=== PATIENT | female | born 1990 | race African-American/Black ===

== ENCOUNTER 2017-05-21 08:08 | Inpatient (IN) | payer MEDICAID ==
[2017-05-21] MEDS ORDERED: RINGERS SOLUTION,LACTATED 300 ML IV ONE (08:25)
[2017-05-21] MEDS ORDERED: RINGERS SOLUTION,LACTATED 1,000 ML IV PRN (08:25)
[2017-05-21] MEDS ORDERED: LIDOCAINE 1% INJ-PF (10 MG/ML) 30 ML SDV ONE (08:31)
[2017-05-21] MEDS ORDERED: OXYTOCIN/NORMAL SALINE 20 UNIT/1,000 ML RTUINJ ONE (08:31)
[2017-05-21] MEDS ORDERED: MISOPROSTOL 0.2 MG TABLET ONE (08:31)
[2017-05-21] MEDS ORDERED: BENZOCAINE/MENTHOL AEROSOL SPRAY 56 ML TOP PRN (08:42)
[2017-05-21] MEDS ORDERED: OXYTOCIN/NORMAL SALINE 20 UNIT/1,000 ML RTUINJ IV PRN (08:42)
[2017-05-21] MEDS ORDERED: MEASLES,MUMPS&RUBELLA VACC/PF 0.5 ML VIAL SUBCUT PRN (08:42)
[2017-05-21] MEDS ORDERED: DIPHENHYDRAMINE HCL 25 MG CAPSULE PO PRN (08:42)
[2017-05-21] MEDS ORDERED: DIPH/PERTUSS(ACELL)/TETANUS VAC/PF 0.5 ML SYR (>=10YO) IM PRN (08:42)
[2017-05-21] MEDS ORDERED: PSEUDOEPHEDRINE HCL 30 MG TABLET PO PRN (08:42)
[2017-05-21] MEDS ORDERED: NA PHOS,M-B/NA PHOS,DI-BA (ADULT) 133 ML ENEMA PR PRN (08:42)
[2017-05-21] MEDS ORDERED: PROMETHAZINE HCL INJ 25 MG/1 ML VIAL IV PRN (08:42)
[2017-05-21] MEDS ORDERED: DIBUCAINE 1% OINTMENT 28 GM TP PRN (08:42)
[2017-05-21] MEDS ORDERED: MAGNESIUM HYDROXIDE SUSP 30 ML UDCUP PO PRN (08:42)
[2017-05-21] MEDS ORDERED: PROMETHAZINE HCL 25 MG TABLET PO PRN (08:42)
[2017-05-21] MEDS ORDERED: ACETAMINOPHEN WITH CODEINE #3 TABLET PO PRN (08:42)
[2017-05-21] MEDS ORDERED: ZOLPIDEM TARTRATE 5 MG TABLET PO PRN (08:42)
[2017-05-21] MEDS ORDERED: PROMETHAZINE HCL 25 MG SUPP.RECT PR PRN (08:42)
[2017-05-21] MEDS ORDERED: ACETAMINOPHEN 325 MG TABLET PO PRN (08:42)
[2017-05-21] MEDS ORDERED: GLYCERIN/WITCH HAZEL LEAF 1 EACH MED..PAD TP PRN (08:42)
[2017-05-21 09:01] LABS: ABSOLUTE MONOCYTES (AUTO) 0.6 10^3/uL (0.1-1.4); ABSOLUTE NEUT (AUTO) 3.3 10^3/uL (1.7-8.2); BASOPHILS % (AUTO) 0.6 % (0-2); EOSINOPHILS % (AUTO) 0.5 % (0-6); HEMATOCRIT 35.7 % (36.0-47.0); LYMPHOCYTES % (AUTO) 33.6 % (13-45); MEAN CORPUSCULAR HEMOGLOBIN 27.9 pg (27.0-33.4); MEAN CORPUSCULAR HGB CONC 33.6 g/dL (32.0-36.0); MEAN CORPUSCULAR VOLUME 83 fl (80-97); MONOCYTES % (AUTO) 9.3 % (3-13); PLATELET COUNT 245 10^3/uL (150-450); RED CELL DISTRIBUTION WIDTH 14.7 % (11.5-14.0); TOTAL CELLS COUNTED % (AUTO) 100 %; WHITE BLOOD COUNT 5.9 10^3/uL (4.0-10.5)
--- NOTE | 2017-05-21 12:56 | Delivery Summary ---
Del Sum A-C Datetime Report Generated by CPN: 05/21/2017 12:56 DELIVERY PERSONNEL DELIVERY PERSONNEL: [id number] Delivery Doctor:: Yashira Lambert CNM Nurse Operations Administrator Certified:: Yashira Lambert CNM Labor and Delivery Nurse:: IMTIAZ Reich Labor and Delivery Nurse:: IMTAIZ Chan Animal Behaviorist/GRANULATOR: Linda Castro CST Animal Behaviorist/GRANULATOR: Ruth Mckinney CST Additional Personnel: : Belia Miner RN MATERNAL INFORMATION Delivery Anesthesia: None Medications After Delivery: Pitocin Bolus-Please Comment; Pitocin Drip 20 Units/1000ml NSS Estimated Blood Loss (ml): 250 Maternal Complications: Precipitous Labor (<3hrs) Provider Comments: AC, TIGHT NUCHAL CORD DELIVERED THROUGH. CORD DOUBLE CLAMPED AND CUT. SPONTANEOUS PLACENTA INTACT WITH 3VC. FIRST DEGREE PERINEAL LACERATION APPROXIMATES WITH NORMAL ANATOMY, HEMOSTATIC-NO REPAIR NEEDED. MOTHER AND INFANT STABLE IN L_D #8. LABOR SUMMARY EDC: 05/20/2017 00:00 No. Babies in Womb: 1 Attempted: No Labor Anesthesia: None LABOR INFORMATION Reason for Induction: Not Applicable Onset of Labor: 05/21/2017 02:00 Complete Dilatation: 05/21/2017 08:36 Oxytocin: N/A Group B Beta Strep: negative Antibiotics # of Doses: 0 Steroids Given: None Reason Steroids Not Administered: Not Applicable MEMBRANES Membranes Rupture Method: Artificial Rupture of Membranes: 05/21/2017 08:42 Length of Rupture (hr): 0.10 Amniotic Fluid Color: Clear Amniotic Fluid Amount: Moderate Amniotic Fluid Odor: Normal STAGES OF LABOR Stage 1 hr: 6 Stage 1 min: 36 Stage 2 hr: 0 Stage 2 min: 12 Stage 3 hr: 0 Stage 3 min: 5 Total Time in Labor hr: 6 Total Time in Labor min: 53 VAGINAL DELIVERY Episiotomy: None Laceration #1: Perineal Laceration Extension #1: First Degree Laceration Repair: No Sponge Count Correct: N/A CSECTION DELIVERY Primary Indication: N/A Secondary Indication: N/A CSection Incidence: N/A Labor: N/A Elective: N/A CSection Incision: N/A BABY A INFORMATION Infant Delivery Date/Time: 05/21/2017 08:48 Method of Delivery: Vaginal Born in Route : No : N/A Forceps: N/A Vacuum Extraction: N/A Shoulder Dystocia : No PRESENTATION/POSITION BABY A Presentation: Cephalic Cephalic Presentation: Vertex Vertex Position: Left Occipital Anterior Breech Presentation: N/A PLACENTA INFORMATION BABY A Placenta Delivery Time : 05/21/2017 08:53 Placenta Method of Delivery: Spontaneous Placenta Status: Delivered SCORES BABY A Heart Rate 1 min: >100 bpm Resp Effort 1 min: Good Cry Reflex Irritability 1 min: Cough or Sneeze or Pulls Away Muscle Tone 1 min: Active Motion Color 1 min: Blue/Pale Resuscitation Effort 1 min: Tactile Stimulation SCORE 1 MIN: 8 Heart Rate 5 min: >100 bpm Resp Effort 5 min: Good Cry Reflex Irritability 5 min: Cough or Sneeze or Pulls Away Muscle Tone 5 min: Active Motion Color 5 min: Body New Roads, Extremities Blue Resuscitation Effort 5 min: N/A SCORE 5 MIN: 9 Resuscitation Effort 10 min: N/A INFORMATION BABY A Gestational Age at Delivery: 40.1 Gestational Status: Full Term- 39- 40.6 Weeks Outcome : Liveborn Condition : Stable Infant Sex: Female IDENTIFICATION BABY A Verification Date/Time: 05/21/2017 09:09 ID Band Number: [id number] Mother's Name Verified: Yes Infant RN Verifying : Brigida Camp RNC Additional Verifying Personnel: Belia Miner RN CORD INFORMATION BABY A No. Cord Vessels: 3 Nuchal Cord : Around Neck x1, Loose Cord Blood Taken: Yes-For Eval (Mom's Blood Type - or O+) Infant Suction: None ASSESSMENT BABY A Complications: None Physical Findings at Delivery: Within Normal Limits Infant Respirations: Appears Normal Skin to Skin: Yes Criminal Analyst/ALS Called : No Care By: Marcos Singh RN Transferred To: Remains with Mother BABY B INFORMATION : N/A SIGNATURES Assignment: Will Porras MD Signature: with User ID: [email or web address] : with User ID: [email or web address] : I was personally available for consultation and serving as supervising physician for the MLP.
[2017-05-21 13:14] LABS: APPEARANCE,URINE CLOUDY; BILIRUBIN,URINE NEGATIVE (NEGATIVE); COLOR,URINE YELLOW; GLUCOSE, URINE NEGATIVE (NEGATIVE); KETONES,URINE NEGATIVE (NEGATIVE); LEUKOCYTE ESTERASE,URINE LARGE (NEGATIVE); NITRITE,URINE NEGATIVE (NEGATIVE); PROTEIN,URINE 30 mg/dL (NEGATIVE); UROBILINOGEN,URINE NEGATIVE mg/dL (<2.0)
[2017-05-21 13:36] LABS: URINE AMPHETAMINES SCREEN NEGATIVE; URINE BARBITURATES SCREEN NEGATIVE; URINE BENZODIAZEPINES SCREEN NEGATIVE; URINE COCAINE SCREEN NEGATIVE; URINE METHADONE SCREEN NEGATIVE; URINE PHENCYCLIDINE SCREEN NEGATIVE
[2017-05-21 13:38] LABS: URINE MARIJUANA (THC) SCREEN UNCONFIRMED POSITIVE
--- NOTE | 2017-05-21 15:50 | Admission Physical ---
Datetime Report Generated by CPN: 05/21/2017 15:49 CURRENT ADMISSION Chief Complaint: Uterine Contractions Indication for Induction: Not Applicable Indication for Induction: Term, Intrauterine ; Active Labor Admit Plan: Admit to Unit; Initiate Labor Protocol ALLERGIES Medication Allergies: No Medication Allergies: No Known Allergies (03/18/2014) Latex: Latex Allergies OBSTETRICAL HISTORY EDC: 05/20/2017 00:00 : 4 Para: 1 Term: 1 : 0 SAB: 2 Livin Gestational Diabetes: No Rh Sensitization: No Incompetent Cervix: No JOSE: No Infertility: No ART Treatment: No Uterine Anomaly: No IUGR: No Hx Previous C/S: No Macrosomia: No Hx Loss/Stillborn: No PIH: No Hx : No Placenta Previa/Abruption: No Depression/PP Depression: No PTL/PROM: No Post Hemorrhage: No Current Procedures: Ultrasound; NST Obstetrical History Comments: G1:SAB G2:SAB G3: boy, , 2012, no problems G4: current, no problems SEE RECORDS Alcohol: No Marijuana : No Cocaine: No Other Illicit Drugs: No Cigarettes: Light Tobacco Smoker. [id number] MEDICAL HISTORY Diabetes: No Blood Transfusion: No Pulmonary Disease (Asthma, TB): No Breast Disease: No Hypertension: No Rig Mechanic Surgery: No Heart Disease: No Hosp/Surgery: Yes Autoimmune Disorder: No Anesthetic Complications: No Kidney Disease: No Abnormal Pap Smear: No Neuro/Epilepsy: No Psychiatric Disorders: No Other Medical Diseases: No Hepatitis/Liver Disease: No Significant Family History: No Varicosities/Phlebitis: No Trauma/Violence : No Thyroid Dysfunction: No Medical History Comments: D_C 2011 INFECTIOUS HISTORY Gonorrhea: No Genital Herpes: No Chlamydia: No Tuberculosis: No Syphilis: No Hepatitis: No HIV/AIDS Exposure: No Rash or Viral Illness: No HPV: No PHYSICAL EXAM General: Normal HEENT: Normal Neurologic: Normal Thyroid: Deferred Heart: Normal Lungs: Normal Breast: Deferred Back: Normal Abdomen: Normal Genitourinary Exam: Normal Extremities: Normal DTRs: Normal Pelvic Type: Adequate Vital Signs: Reviewed VAGINAL EXAM Dilatation: 9 Effacement: 100 Station: 0 Contraction Comments: q 2-3 FETUS A EGA: 40.1 Monitoring: External US FHR- Baseline: 125 Variability: Moderate 6-25bpm Accelerations: 15X15 Decelerations: None FHR Category: Category I Presentation: Vertex Admit Comment: 27yo at 40+1ega presents with regular uterine ctx presents due to ctx since 0200. c/b obesity - passed early GTT (failed 28wks 1hr, passed 3 hr GTT). She desires BTL. RH negative - recieved rhogam. GBS negative. Pelvis adequate for SHARON. Anticipate precipitous vaginal delivery. PLANS FOR LABOR AND DELIVERY Labor and Delivery: None Pain Management: None Feeding Preference: Breast Benefit of Breast Feed Discussed: Yes Circumcision: Yes INFORMED CONSENT Informed Consent Obtained: Vaginal Delivery; Risks, Benefits and Alternatives Discussed Signature: with User ID: [email or web address]
[2017-05-21] MEDS: FERROUS SULFATE 325 MG TABLET PO SCH (18:10)
[2017-05-21] MEDS: DOCUSATE SODIUM 100 MG CAPSULE PO SCH (18:11)
[2017-05-21] MEDS: PRENATAL VITAMIN W DHA CAPSULE PO SCH (18:13)
[2017-05-21] MEDS: IBUPROFEN 800 MG TABLET PO SCH ×2 (18:13→21:34)
[2017-05-21] MEDS: FAMOTIDINE 20 MG TABLET PO SCH ×2 (18:13→21:34)
[2017-05-21] MEDS: SENNOSIDES/DOCUSATE 8.6-50 MG 1 EACH TABLET PO SCH (18:13)
[2017-05-22] MEDS: ACETAMINOPHEN WITH CODEINE #3 TABLET PO PRN ×3 (06:36→22:38)
[2017-05-22] MEDS: IBUPROFEN 800 MG TABLET PO SCH ×3 (06:38→22:39)
[2017-05-22 08:07] LABS: HEMATOCRIT 30.2 % (36.0-47.0); HEMOGLOBIN 10.1 g/dL (12.0-15.5); MEAN CORPUSCULAR HEMOGLOBIN 28.1 pg (27.0-33.4); MEAN CORPUSCULAR HGB CONC 33.5 g/dL (32.0-36.0); MEAN CORPUSCULAR VOLUME 84 fl (80-97); PLATELET COUNT 225 10^3/uL (150-450); RED CELL DISTRIBUTION WIDTH 14.7 % (11.5-14.0); WHITE BLOOD COUNT 8.9 10^3/uL (4.0-10.5)
[2017-05-22] MEDS: DOCUSATE SODIUM 100 MG CAPSULE PO SCH ×2 (09:17→17:34)
[2017-05-22] MEDS: FAMOTIDINE 20 MG TABLET PO SCH ×2 (09:17→22:39)
[2017-05-22] MEDS: PRENATAL VITAMIN W DHA CAPSULE PO SCH (09:17)
[2017-05-22] MEDS: FERROUS SULFATE 325 MG TABLET PO SCH ×2 (09:18→17:34)
[2017-05-22] MEDS: SENNOSIDES/DOCUSATE 8.6-50 MG 1 EACH TABLET PO SCH (09:18)
--- NOTE | 2017-05-22 10:40 | PDOC PROGRESS REPORT ---
Subjective-OB Progress Note for:: 05/22/17 Subjective: Doing well, no c/o, breast feeding, voiding, family at BS Physical Exam (OB) Vital Signs: Temp Pulse Resp BP Pulse Ox 98.4 F 89 20 117/63 100 05/21/17 19:44 05/21/17 19:44 05/21/17 19:44 05/21/17 19:44 05/21/17 19:44 Intake & Output 05/21/17 05/22/17 05/23/17 06:59 06:59 06:59 Weight 99.8 kg - Lochia Lochia Amount: Scant < 10 ml Lochia Color: Rubra/Red - Abdomen Description: Soft, Flat Hernia Present: No Fundal Description: Firm, Midline Fundal Height: u/u - u/2 Objective-Diagnostic Laboratory: 05/22/17 07:58 05/21/17 05/22/17 05/22/17 08:16 07:58 07:58 WBC 8.9 RBC 3.60 L Hgb 10.1 L Hct 30.2 L MCV 84 MCH 28.1 MCHC 33.5 RDW 14.7 H Plt Count 225 Urine Color YELLOW Urine Appearance CLOUDY Urine pH 5.0 Ur Specific [place] 1.020 Urine Protein 30 H Urine Glucose (UA) NEGATIVE Urine Ketones NEGATIVE Urine Blood LARGE H Urine Nitrite NEGATIVE Ur Leukocyte Esterase LARGE H Blood Type O NEGATIVE Assessment and Plan(PN) - Assessment and Plan (1) Rh negative, delivered, current hospitalization Is this a current diagnosis for this admission?: Yes (2) Precipitous delivery, delivered (current hospitalization) Is this a current diagnosis for this admission?: Yes - Time Spent with Patient Time with patient: Less than 15 minutes Medications reviewed and adjusted accordingly: Yes - Disposition Anticipated Discharge: Home Within: within 24 hours
[2017-05-22 12:38] LABS: FETAL RBC COUNT 10
[2017-05-22 12:50] LABS: KB INTERPRETATION POSITIVE (NEGATIVE)
[2017-05-23] MEDS: IBUPROFEN 800 MG TABLET PO SCH (08:02)
[2017-05-23] MEDS: SENNOSIDES/DOCUSATE 8.6-50 MG 1 EACH TABLET PO SCH (09:12)
[2017-05-23] MEDS: PRENATAL VITAMIN W DHA CAPSULE PO SCH (09:12)
[2017-05-23] MEDS: DOCUSATE SODIUM 100 MG CAPSULE PO SCH (09:12)
[2017-05-23] MEDS: FAMOTIDINE 20 MG TABLET PO SCH (09:13)
[2017-05-23] MEDS: FERROUS SULFATE 325 MG TABLET PO SCH (09:13)
--- NOTE | 2017-05-23 10:22 | PDOC PROGRESS REPORT ---
Subjective-OB Progress Note for:: 05/23/17 Subjective: Ready for discharge. Physical Exam (OB) Vital Signs: Temp Pulse Resp BP Pulse Ox 98.1 F 110 H 20 120/69 99 05/23/17 08:01 05/23/17 08:01 05/23/17 08:01 05/23/17 08:01 05/23/17 08:01 Intake & Output 05/22/17 05/23/17 05/24/17 06:59 06:59 06:59 Intake Total 540 300 Output Total 200 Balance 340 300 Weight 99.8 kg - Lochia Lochia Amount: Scant < 10 ml Lochia Color: Rubra/Red - Abdomen Description: Soft Hernia Present: No Bowel Sounds: Normoactive Flatus Presence: Present Stool: No Fundal Description: Firm, Midline Fundal Height: u/u - u/2 Objective-Diagnostic Laboratory: 05/22/17 07:58 05/22/17 07:58 Blood Type O NEGATIVE Assessment and Plan(PN) - Time Spent with Patient Medications reviewed and adjusted accordingly: Yes - Disposition Anticipated Discharge: Home
--- NOTE | 2017-05-23 10:26 | PDOC DISCHARGE SUMMARY ---
Final Diagnosis Discharge Date: 05/23/17 - Final Diagnosis (1) Obesity Is this a current diagnosis for this admission?: Yes (2) Precipitous delivery, delivered (current hospitalization) Is this a current diagnosis for this admission?: Yes (3) Rh negative, delivered, current hospitalization Is this a current diagnosis for this admission?: Yes Discharge Data - Discharge Medication Home Medications: Vit No.130/Iron/Folic [ Tablet] 1 each PO DAILY 05/21/17 Gestational Age: 40.1 wks Reason(s) for Admission: Onset of Labor Procedures: Ultrasound Intrapartum Procedure(s): Spontaneous Vaginal Delivery Complication(s): Laceration-Perineal Laceration-Degree: 1st - Data Baby 1 Female at 1 minute: 8 at 5 minutes: 9 Weight: 3.544 kg Home with Mother: Yes Complications: No - Diagnosis Test Laboratory: Temp Pulse Resp BP Pulse Ox 98.1 F 110 H 20 120/69 99 05/23/17 08:01 05/23/17 08:01 05/23/17 08:01 05/23/17 08:01 05/23/17 08:01 05/21/17 05/21/17 05/22/17 08:16 08:26 07:58 RBC 4.30 3.60 L Hgb 12.0 10.1 L Hct 35.7 L 30.2 L Urine Opiates Screen NEGATIVE - Discharge information/Instructions Discharge Activity: Activity As Tolerated, Balance Activity w/Rest, Pelvic Rest , Slowly Increase Activity, No tub bath Discharge Diet: Regular Disposition: HOME, SELF-CARE Follow [facility] with: [facility] in: 4, Weeks
[2017-05-23 11:19] VITALS: BP 104/69
== END 2017-05-23 11:30 | disposition home or self-care (01) | DRG 775 ==
LOC: LC 08:08 → LR 08:29 → 2S 15:45
PROVIDERS: ADMIT Obstetrics & Gynecology Gynecology; ATTEND Obstetrics & Gynecology Gynecology
PROC: 10E0XZZ Delivery of Products of Conception, External Approach (ICD-10-PCS; principal; 2017-05-21)
PROC: 4A1HXCZ Monitoring of Products of Conception, Cardiac Rate, External Approach (ICD-10-PCS; 2017-05-21)
PROC: 10907ZC Drainage of Amniotic Fluid, Therapeutic from Products of Conception, Via Natural or Artificial Opening (ICD-10-PCS; 2017-05-22)
PROC: 3E0234Z Introduction of Serum, Toxoid and Vaccine into Muscle, Percutaneous Approach (ICD-10-PCS; 2017-05-23)
DX: O99.214 Obesity complicating childbirth (principal); O69.81X0 Labor and delivery complicated by cord around neck, without compression, not applicable or unspecified; E66.9 Obesity, unspecified; O26.893 Other specified pregnancy related conditions, third trimester; O99.334 Smoking (tobacco) complicating childbirth; F17.200 Nicotine dependence, unspecified, uncomplicated; O62.3 Precipitate labor; O70.0 First degree perineal laceration during delivery; Z67.41 Type O blood, Rh negative; Z3A.40 40 weeks gestation of pregnancy; Z68.34 Body mass index [BMI] 34.0-34.9, adult; Z37.0 Single live birth
CPT/HCPCS: 36415; 80307; 81005; 85025; 85027; 85460; 85461; 86592; 86850; 86900; 86901; G0480; J2590; J2790; J3490